=== PATIENT | female | born 1950 | race Caucasian/White ===

== ENCOUNTER 2017-02-07 18:01 | Emergency (ER) | payer MEDICARE ==
[~2017-02-07] VITALS: Ht 165.1 cm; Wt 105.2 kg
[2017-02-07] MEDS ORDERED: NORVASC5 MG PO (19:01)
[2017-02-07] MEDS ORDERED: TENORMIN25 MG PO (19:01)
[2017-02-07] MEDS ORDERED: PLAVIX75 MG PO (19:02)
[2017-02-07] MEDS ORDERED: ATORVASTATIN CA80 MG PO (19:02)
[2017-02-07] MEDS ORDERED: LISINOPRIL40 MG PO (19:02)
[2017-02-07] MEDS ORDERED: PERCOCET 5-3251 EACH PO (23:05)
[2017-02-07] MEDS ORDERED: FLOMAX0.4 MG PO (23:05)
== END 2017-02-07 23:30 | disposition home or self-care (01) ==
LOC: ED 18:01
DX: N13.2 Hydronephrosis with renal and ureteral calculous obstruction (principal); Z86.73 Personal history of transient ischemic attack (TIA), and cerebral infarction without residual deficits; Z79.899 Other long term (current) drug therapy
CPT/HCPCS: 36415; 74177; 80053; 81001; 85025; 96374; 99284; J1885; Q9967